=== PATIENT | male | born 1985 | race African-American/Black ===

== ENCOUNTER 2016-12-06 15:46 | Emergency (ER) | payer MEDICAID ==
[~2016-12-06] VITALS: Ht 210.8 cm; Wt 78.0 kg
[2016-12-06 17:12] VITALS: BP 118/72
[2016-12-06] MEDS ORDERED: METHOCARBAMOL 500 MG TAB PO ONE (17:30)
[2016-12-06] MEDS ORDERED: KETOROLAC TROMETH 60MG/2ML VIAL IM ONE (17:30)
== END 2016-12-06 18:21 | disposition home or self-care (01) ==
LOC: ER 15:46
DX: S16.1XXA Strain of muscle, fascia and tendon at neck level, initial encounter (principal); G89.29 Other chronic pain; M54.5 Low back pain; F17.210 Nicotine dependence, cigarettes, uncomplicated; V43.52XA Car driver injured in collision with other type car in traffic accident, initial encounter; Y93.89 Activity, other specified; Y92.89 Other specified places as the place of occurrence of the external cause; Y99.8 Other external cause status
CPT/HCPCS: 72040; 96372; 99284; J1885

== ENCOUNTER 2016-12-09 17:30 | Emergency (ER) | payer MEDICAID ==
[~2016-12-09] VITALS: Ht 185.4 cm; Wt 77.1 kg
[2016-12-09 17:40] VITALS: BP 119/76
== END 2016-12-09 21:45 | disposition left against medical advice (07) ==
LOC: ER 17:34
DX: R10.13 Epigastric pain (principal); Z53.21 Procedure and treatment not carried out due to patient leaving prior to being seen by health care provider

== ENCOUNTER 2017-04-30 10:07 | Emergency (ER) | payer MEDICAID ==
[2017-04-30 11:31] VITALS: BP 133/77
== END 2017-04-30 12:04 | disposition home or self-care (01) ==
LOC: ER 10:07
DX: S02.651A Fracture of angle of right mandible, initial encounter for closed fracture (principal); F17.210 Nicotine dependence, cigarettes, uncomplicated; F12.10 Cannabis abuse, uncomplicated; Y08.89XA Assault by other specified means, initial encounter; Y93.89 Activity, other specified; Y99.8 Other external cause status; Y92.89 Other specified places as the place of occurrence of the external cause
CPT/HCPCS: 70110